=== PATIENT | female | born 2000 | race Caucasian/White ===

== ENCOUNTER 2023-04-16 20:26 | Emergency (ER) | payer BC ==
[~2023-04-16] VITALS: Ht 152.4 cm; Wt 59.0 kg
[2023-04-16] MEDS ORDERED: ALBU8.5H8 IH (21:19)
[2023-04-16] MEDS ORDERED: ONDANSETRON ODT 4 MG TAB.RAPDIS SL ONE (22:45)
[2023-04-16] MEDS ORDERED: ONDANSETRON ODT 4 MG TAB.RAPDIS ONE (22:53)
[2023-04-16 22:54] LABS: *AMPHETAMINE, URINE NEGATIVE (NEGATIVE); *BARBITURATE, URINE NEGATIVE (NEGATIVE); *BENZODIAZEPINE, URINE NEGATIVE (NEGATIVE); *CANNABINOID, URINE NEGATIVE (NEGATIVE); *COCCAINE, URINE NEGATIVE (NEGATIVE); *OPIATE, URINE NEGATIVE (NEGATIVE); *PHENCYCLIDINE SCREEN,URINE NEGATIVE (NEGATIVE); FENTANYL, URINE NEGATIVE (NEGATIVE)
[2023-04-16 22:56] LABS: *URINE HCG, QUAL NEGATIVE (NEGATIVE)
[2023-04-17] MEDS ORDERED: NAPR500T6 PO (00:18)
[2023-04-17 00:25] VITALS: BP 122/77; TEMP 98; O2SAT 98
== END 2023-04-17 00:25 | disposition home or self-care (01) ==
LOC: ER 20:31
DX: S06.0X0A Concussion without loss of consciousness, initial encounter (principal); S13.4XXA Sprain of ligaments of cervical spine, initial encounter; S00.83XA Contusion of other part of head, initial encounter; S80.12XA Contusion of left lower leg, initial encounter; R11.2 Nausea with vomiting, unspecified; F10.129 Alcohol abuse with intoxication, unspecified; R07.89 Other chest pain; J45.909 Unspecified asthma, uncomplicated; Z79.899 Other long term (current) drug therapy; Y04.2XXA Assault by strike against or bumped into by another person, initial encounter; Y93.89 Activity, other specified; Y92.89 Other specified places as the place of occurrence of the external cause; Y99.8 Other external cause status; Y90.3 Blood alcohol level of 60-79 mg/100 ml
CPT/HCPCS: 36415; 70450; 71046; 72125; 73590; 84703; A4663; G0480; Q0162